=== PATIENT | male | born 1935 | race Caucasian/White ===

== ENCOUNTER 2020-11-14 09:42 | Emergency (ER) | payer MEDICARE, SELFPAY ==
[2020-11-14 09:57] VITALS: BP 123/86; PULSE 104; RESP 16; TEMP 36.7; O2SAT 94; BMI 18.5
--- NOTE | 2020-11-14 09:57 | W.ED.GENADLT ---
HPI - General Adult General: Stated complaint: CATHETER PROBLEMS Time Seen by Provider: 11/14/20 09:44 History of Present Illness: HPI narrative: Arrived via ambulance from [facility]. Patient was unable to urinate this morning. Went to the ER. They try to catheterize him twice and only got blood is returned. They spoke with Dr. Diaz patient was transferred here. Dr. Diaz to see patient here in the ER. Patient has no other complaints besides bladder being full. Has history of enlarged prostate. MD complaint: Unable to urinate Onset (ago): hour(s) Severity scale (1-10): 7 Quality: aching Pain Consistency: constant Relieving factors: none Exacerbating factors: movement Associated symptoms: Reports no associated symptoms; Deny chest pain or dyspnea Treatments prior to arrival: other (Attempted catheterization x2 [facility]) Review of Systems Narrative: Patient unable to urinate since he got up this morning was seen at [facility] catheterization x2 was attempted with only return of blood. Dr. Diaz was contacted and is admit patient here in the ER. Card: Denies: chest pain Resp: Denies: dyspnea : Reports: difficulty urinating and other (History of enlarged prostate) Physical Exam Const: GENERAL APPEARANCE: cooperative ORIENTATION/CONSCIOUSNESS: Yes awake, Yes oriented to person, Yes oriented to place and Yes oriented to time Resp: COMMON NORMALS: normal respiratory effort : OTHER: Patient tender over bladder area did not attempt to palpate due to tenderness Neuro: SENSORIUM/ORIENTATION: Yes oriented to person, Yes oriented to place and Yes oriented to time Psych: COMMON NORMALS: mental status grossly normal Coding Level of Care Code ED Inspector Subassembly for Denton Flores
--- NOTE | 2020-11-14 10:56 | PC.NURSE ---
f/c inserted by Dr. Diaz, patient tolerated well. leg bag attached. u/o 600ml to the dos santos bag. patient denied any pain at this time.
--- NOTE | 2020-11-14 10:58 | PM.CONSULT ---
Providers/Reason For Consult Consulting Physican/Specialty*: Urology/Diaz Reason for Consult*: Urinary retention with inability to pass a catheter Primary Care Provider: Torrey Hunt MD History of Present Illness History of Present Illness Ernesto Valladares is a 84 year old male who I evaluated for the first time today at the request of the [facility] emergency department. The patient presented in severe discomfort associated with urinary retention and multiple attempts at passing a catheter were unsuccessful. It was requested that the patient be transferred [place] [facility] [place] evaluation and catheter placement. He reports an enlarged prostate chronically. He follows with a urologist in [place] who apparently has no suspicion of prostate cancer. Patient is chronically on tamsulosin 0.4 mg daily. Has never had any higher doses. Apparently has never tried finasteride. Has had no previous prostate surgeries. He has had catheters in the past and apparently did not have difficulty with catheter placement per his report. Bladder is palpably distended and he is very uncomfortable. PROCEDURE: Bedside CYSTOSCOPY with catheter placement over guidewire Patient was prepped and draped in the usual sterile fashion. A flexible cystoscope was used to advance into the well-lubricated urethra. There was some mild trauma on the posterior prostatic floor but no severe bleeding. The scope was able to be manipulated into the bladder. Bladder distention was confirmed. There was some blood in the bladder which made complete visualization difficult. A guidewire was then passed through the catheter and the scope was removed. An 18 [place] flandreau tip catheter was then utilized and passed over the guidewire into the bladder. Good function was confirmed, the balloon inflated, and the guidewire removed. A total of approximately 800 cc was drained. Catheter is functioning well. A leg bag was attached. Nighttime bag was provided. Tolerated the procedure well without complications. We discussed the potential benefit of increasing his tamsulosin to twice a day and also the addition of FINASTERIDE given the size of his prostate. Also discussed the importance of allowing his bladder to recover with drainage for least a couple weeks. That point I will plan on seeing him in the office for voiding trial, possible cystoscopy, likely SCIC instruction with a coud? catheter. All the above was explained to the patient he agreed. He wants to complete this follow-up locally. Review of Systems Const: Denies: fever(s) or chills Card: Denies: chest pain or palpitations Resp: Denies: dyspnea or wheezing GI: Reports: abdominal pain; Denies: vomiting or dysphagia : Reports: difficulty urinating, dysuria, urinary urgency, urinary dribbling, difficulty starting urination and hematuria Musc: Denies: joint redness or joint warmth Skin/Breast: Denies: rash or skin tenderness Neuro: Denies: headache(s), confusion, Slurred speech present or seizure-like activity Psych: Reports: anxiety Endo: Denies: polyuria or hot flashes Dion/Lymph: Denies: easy bruising or easy bleeding All/Imm: Denies: urticaria or acute wheezing Meds/Allergies Home Medications and Allergies Home Medications Medication Instructions Recorded Confirmed Last Taken Type finasteride 5 mg PO DAILY #30 tab 11/14/20 Unknown Rx tamsulosin 0.4 mg PO BIDWM #60 cap 11/14/20 Unknown Rx Allergies Allergy/AdvReac Type Severity Reaction Status Date / Time Penicillins Allergy ALGY-Hives Verified 11/14/20 10:03 PFSH Acute PFSH: Medical History (Updated 11/14/20 @ 10:58 by Sathish Diaz MD) Acute urinary retention BPH loc w urin obs/LUTS Family History (Updated 11/14/20 @ 11:05 by Sathish Diaz MD) Denies family history of Anesthesia complication Social History (Updated 11/14/20 @ 11:05 by Sathish Diaz MD) Marital status: / Marital status details: He lost his about a year and a half ago. Vitals/I&O/Wt Last Vital Signs Temp 98.1 F 11/14/20 09:57 Pulse 104 H 11/14/20 09:57 Resp 16 11/14/20 09:57 BP 123/86 11/14/20 09:57 Pulse Ox 94 11/14/20 09:57 Weight last 48 hrs Weight 129 lb Physical Exam Const: COMMON NORMALS: no acute distress, alert and well nourished GENERAL APPEARANCE: well kempt and well developed ORIENTATION/CONSCIOUSNESS: not confused HENMT: COMMON NORMALS: normocephalic and atraumatic HEAD & SCALP: normocephalic and atraumatic Eye: COMMON NORMALS: conjunctivae normal and no scleral icterus CONJUNCTIVA: Yes conjunctivae normal Neck/C-Spine: COMMON NORMALS: full ROM GENERAL: Yes normal visual inspection Lymph: LYMPHATIC: No no lymphadenopathy noted Resp: COMMON NORMALS: normal respiratory effort EFFORT & INSPECTION: No labored and No Actively coughing Cardio: COMMON NORMALS: regular rate and regular rhythm RATE: regular rate RHYTHM: regular rhythm GI: PALPATION: Yes Tenderness to palpation present (GI) Details: LLQ, RLQ and other (Suprapubic) : COMMON NORMALS: Yes no CVA tenderness BLADDER/KIDNEY EXAM: Yes no CVA tenderness MALE GROIN/PERINEUM EXAM: No ecchymosis PENIS: normal penis MEATUS: meatus normal, no meatla discharge and No Blood at meatus present SCROTUM: Yes testes descended bilaterally, No edematous and No scrotal swelling TESTES: No absent testicle, No testicular tenderness, No testicular mass, Yes epididymides normal and No epididymal tenderness Back/Pelvis: COMMON NORMALS: no CVA tenderness Extremity: COMMON NORMALS: no clubbing, cyanosis or edema Neuro: COMMON NORMALS: no focal motor deficits SENSORIUM/ORIENTATION: Yes alert Psych: COMMON NORMALS: mental status grossly normal APPEARANCE: Yes grossly normal and Yes well kempt ATTITUDE: Yes engaged Skin: COMMON NORMALS: no rashes or lesions noted and no jaundice GENERAL SKIN EXAM: no rashes or lesions noted A&P Assessment and plan (1) Acute urinary retention: Follow-up in 2 weeks for voiding trial possible cystoscopy and SCIC instruction if possible. Status: Acute (2) BPH loc w urin obs/LUTS: Status: Acute Coding Level of Care Code Acute Jig Boring Machine Set Up Operator for [facility] Diagnoses Acute urinary retention R33.8 BPH loc w urin obs/LUTS N40.1
[2020-11-14 11:47] VITALS: BP 116/83; PULSE 92; RESP 16; O2SAT 97
== END 2020-11-14 11:48 | disposition home or self-care (01) ==
PROVIDERS: Emergency Provider Nurse Practitioner Family; PCP Family Medicine
DX: R39.198 Other difficulties with micturition (principal)
CPT/HCPCS: 99283

== ENCOUNTER → 2021-01-29 09:01 | Outpatient (BNVA) | payer MEDICARE, SELFPAY | PROVIDERS: PCP Family Medicine; Visit Provider Urology | DX: N40.1 Benign prostatic hyperplasia with lower urinary tract symptoms (principal); R31.0 Gross hematuria; N39.0 Urinary tract infection, site not specified | CPT/HCPCS: 81003 ==

== ENCOUNTER → 2021-05-21 10:03 | Outpatient (BNVA) | payer MEDICARE, SELFPAY | PROVIDERS: PCP Family Medicine; Visit Provider Urology | DX: N39.0 Urinary tract infection, site not specified (principal) | CPT/HCPCS: 81003 ==

== ENCOUNTER → 2022-05-21 10:39 | Outpatient (BNVA) | payer MEDICARE, SELFPAY | PROVIDERS: PCP Student in an Organized Health Care Education/Training Program; Visit Provider Urology | DX: N52.1 Erectile dysfunction due to diseases classified elsewhere (principal); R35.81 Nocturnal polyuria; N40.1 Benign prostatic hyperplasia with lower urinary tract symptoms | CPT/HCPCS: 51798; 81003; 99213 ==